=== PATIENT | female | born 1970 | race Asian ===

== ENCOUNTER 2023-12-26 20:25 | Emergency (ER) | payer OTHER ==
[~2023-12-26] VITALS: Ht 172.7 cm; Wt 59.0 kg
[2023-12-26 20:37] VITALS: BP_SYST 123; PULSE 71; RESP 18; TEMP 97.7; O2SAT 98
[2023-12-26] MEDS ORDERED: IBUP-1968 PO (23:03)
[2023-12-26] MEDS ORDERED: ACET-2634 PO (23:03)
[2023-12-26] MEDS: ACETAMINOPHEN 500 MG TABLET PO ONE (23:11)
[2023-12-26 23:12] VITALS: BP_SYST 120; PULSE 68; RESP 17; TEMP 97.7; O2SAT 100
[2023-12-27] MEDS ORDERED: HYDR-3927 PO (08:27)
[2023-12-27] MEDS ORDERED: IBUP-1969 PO (08:27)
== END 2023-12-26 23:12 | disposition home or self-care (01) ==
LOC: SED 20:25
DX: M25.521 Pain in right elbow (principal); W18.39XA Other fall on same level, initial encounter; Y93.89 Activity, other specified; Y92.89 Other specified places as the place of occurrence of the external cause; Y99.8 Other external cause status
CPT/HCPCS: 99283

== ENCOUNTER 2023-12-27 07:46 | Emergency (ER) | payer OTHER ==
[~2023-12-27] VITALS: Ht 172.7 cm; Wt 46.3 kg
[~2023-12-27 07:46] MED LIST: ACET-2634 PO; IBUP-1968 PO
[2023-12-27 07:52] VITALS: BP_SYST 100; PULSE 69; RESP 16; TEMP 97.5; O2SAT 100
[2023-12-27] MEDS ORDERED: IBUP-1969 PO (08:27)
[2023-12-27] MEDS ORDERED: HYDR-3927 PO (08:27)
[2023-12-27 08:49] VITALS: BP_SYST 105; PULSE 68; RESP 16; TEMP 97.5; O2SAT 99
== END 2023-12-27 08:50 | disposition home or self-care (01) ==
LOC: SED 07:46
DX: M77.11 Lateral epicondylitis, right elbow (principal); Z79.899 Other long term (current) drug therapy
CPT/HCPCS: 99283